=== PATIENT | male | born 1965 | race Caucasian/White ===

== ENCOUNTER → 2017-10-18 | Outpatient (CLI) | payer OTHER ==
[~2017-10-18] MED LIST: ASPIRIN81 M1 PO; CIPRO500 MG PO; FISH OIL CONC1000 M2 PO; FISH OIL500 M1 PO; HYCODAN/HYDROMET5 ML PO; LISINOPRIL10 M1 PO; METFORMIN HCL1000 M1 PO; NORVASC5 MG PO; OMEPRAZOLE40 MG PO; PRAVACHOL40 MG PO; PROPRANOLOL; PROPRANOLOL ER80 MG PO; RANITIDINE HYD300 MG PO; VIBRAMYCIN100 MG PO; VITAMIN B125000 MCG SL; [UNRECOGNIZED DRUG - OTHER] NAS
[2017-10-18 07:44] LABS: CREATININE 0.93 mg/dL (0.70-1.30)
[2017-10-18 09:12] LABS: BILIRUBIN NEGATIVE (NEGATIVE); BLOOD TRACE-INTACT (NEGATIVE); CLARITY SL CLOUDY (CLEAR); COLOR YELLOW (YELLOW); GLUCOSE NEGATIVE (NEGATIVE); KETONE NEGATIVE (NEGATIVE); LEUKO ESTERASE NEGATIVE (NEGATIVE); NITRITE NEGATIVE (NEGATIVE); PH 5.5 (5.0-9.0); UROBILINOGEN 0.2 E.U./dl (0.2-1.0)
[2017-10-18 10:06] LABS: BACTERIA TRACE; MUCOUS 2+
== END | disposition home or self-care (01) ==
LOC: LAB 07:10 → CT 08:00
PROVIDERS: Radiology Diagnostic Radiology; Urology
DX: K76.0 Fatty (change of) liver, not elsewhere classified (principal); K80.20 Calculus of gallbladder without cholecystitis without obstruction

== ENCOUNTER → 2018-01-28 | Outpatient (CLI) | payer OTHER ==
[2018-01-28 09:30] LABS: ALBUMIN 3.9 gm/dl (3.1-4.5); ALKALINE PHOSPHATASE 43 U/L (45-117); BILIRUBIN, DIRECT < 0.1 mg/dL (0.0-0.2); BUN 23 mg/dl (7-24); CHLORIDE 105 mmol/L (98-107); CHOLESTEROL 155 mg/dL (<200); CPK 95 U/L (39-308); CREATININE 0.94 mg/dL (0.70-1.30); GAMMA GLUTAMYL TRANSPEPTIDASE 15 U/L (15-85); HDL CHOLESTEROL 34 mg/dl (40-60); LDL CHOLESTEROL 91 mg/dL (9-159); POTASSIUM 4.3 mmol/L (3.5-5.1); SGOT/AST 13 IU/L (3-35); SGPT/ALT 23 U/L (12-78); SODIUM 139 mmol/L (136-145); TOTAL PROTEIN 8.1 gm/dL (6.4-8.2); TRIGLYCERIDES 150 mg/dl (<150); VLDL CHOLESTEROL 30 mg/dL (6-40)
== END | disposition home or self-care (01) ==
LOC: LAB 08:32
PROVIDERS: Family Medicine
DX: E78.5 Hyperlipidemia, unspecified (principal); R53.83 Other fatigue; R79.89 Other specified abnormal findings of blood chemistry

== ENCOUNTER → 2020-07-29 | Outpatient (CLI) | payer OTHER ==
[2020-07-29 10:46] LABS: BILIRUBIN Negative (Negative); BLOOD Negative (Negative); CLARITY Clear (Clear); COLOR Yellow (Yellow); GLUCOSE Negative (Negative); KETONE Negative (Negative); LEUKO ESTERASE Negative (Negative); NITRITE Negative (Negative); UROBILINOGEN 0.2 E.U./dl (0.0-1.0)
[2020-07-29 10:53] LABS: BASO # 0.1 10*3/uL (0.0-0.1); BASO % 0.7 % (0.0-1.0); EOS # 0.2 10*3/uL (0.0-0.4); HEMATOCRIT 40.2 % (42.0-52.0); LYMPH # 3.8 10*3/uL (1.3-4.4); LYMPH % 44.7 % (27.0-41.0); MEAN CELL VOLUME 86.8 fl (80.0-94.0); MEAN CORPUSCULAR HGB 28.1 pg (27.0-31.0); MEAN CORPUSCULAR HGB CONC 32.3 g/dl (33.0-37.0); MEAN PLATELET VOLUME 9.7 fl (9.6-12.3); MONO # 0.8 10*3/uL (0.1-1.0); MONO % 8.8 % (3.0-9.0); NEUT # 3.7 10*3/uL (2.3-7.9); NEUT % 42.9 % (47.0-73.0); PLATELET COUNT AUTOMATED 332 10*3/uL (130-400); RED BLOOD COUNT 4.63 10*6/uL (4.50-5.90); RED CELL DISTRI WIDTH 12.3 % (0-14.5); RETICULOCYTE % 1.48 % (0.50-2.50); WHITE BLOOD COUNT 8.6 10*3/uL (4.8-10.8)
[2020-07-29 11:18] LABS: ALBUMIN 3.6 gm/dl (3.1-4.5); BUN 19 mg/dl (7-24); CHLORIDE 103 mmol/L (98-107); CHOLESTEROL 188 mg/dL (<200); GAMMA GLUTAMYL TRANSPEPTIDASE 22 U/L (15-85); POTASSIUM 4.3 mmol/L (3.5-5.1); SGPT/ALT 23 U/L (12-78); SODIUM 135 mmol/L (136-145); TRIGLYCERIDES 220 mg/dl (<150); VLDL CHOLESTEROL 44 mg/dL (6-40)
[2020-07-29 11:27] LABS: ALKALINE PHOSPHATASE 53 U/L (45-117); CPK 71 U/L (39-308); CREATININE 0.82 mg/dL (0.70-1.30); HDL CHOLESTEROL 40 mg/dl (40-60); IRON 72 ug/dL (65-175); LDL CHOLESTEROL 104 mg/dL (9-159); SGOT/AST 12 IU/L (3-35); THYROID STIM HORMONE (HS) 0.871 uIU/ml (0.358-4.75); TOTAL IRON BINDING CAPACITY 409 ug/dl (250-450); TOTAL PROTEIN 7.9 gm/dL (6.4-8.2)
[2020-07-29 11:31] LABS: EPITHELIAL CELLS 0-2; MUCOUS 2+
== END | disposition home or self-care (01) ==
LOC: LAB 10:29
PROVIDERS: ATTEND Family Medicine
DX: Z00.01 Encounter for general adult medical examination with abnormal findings (principal); R79.89 Other specified abnormal findings of blood chemistry; R53.83 Other fatigue; Z13.6 Encounter for screening for cardiovascular disorders; Z13.9 Encounter for screening, unspecified

== ENCOUNTER → 2022-07-19 | Outpatient (CLI) | payer OTHER ==
[2022-07-19 10:35] LABS: BASO # 0.1 10*3/uL (0.0-0.1); EOS # 0.1 10*3/uL (0.0-0.4); EOS % 1.7 % (1.0-4.0); LYMPH # 3.4 10*3/uL (1.3-4.4); LYMPH % 44.3 % (27.0-41.0); MEAN CELL VOLUME 85.4 fl (80.0-94.0); MEAN CORPUSCULAR HGB 29.1 pg (27.0-31.0); MEAN CORPUSCULAR HGB CONC 34.1 g/dl (33.0-37.0); MEAN PLATELET VOLUME 9.6 fl (9.6-12.3); MONO # 0.6 10*3/uL (0.1-1.0); MONO % 7.5 % (3.0-9.0); NEUT # 3.5 10*3/uL (2.3-7.9); NEUT % 44.9 % (47.0-73.0); PLATELET COUNT AUTOMATED 356 10*3/uL (130-400); RED BLOOD COUNT 5.15 10*6/uL (4.50-5.90); RED CELL DISTRI WIDTH 12.1 % (0-14.5); RETICULOCYTE % 1.44 % (0.50-2.50); WHITE BLOOD COUNT 7.7 10*3/uL (4.8-10.8)
[2022-07-19 10:59] LABS: ALKALINE PHOSPHATASE 57 U/L (46-116); BUN 20 mg/dl (9-23); CHLORIDE 99 mmol/L (98-107); CHOLESTEROL 195 mg/dL (<200); GAMMA GLUTAMYL TRANSPEPTIDASE 23 U/L (0-73); LDL CHOLESTEROL 105 mg/dL (9-159); POTASSIUM 4.5 mmol/L (3.4-5.1); SGPT/ALT 22 U/L (10-49); THYROID STIM HORMONE (HS) 0.739 uIU/ml (0.550-4.780); TOTAL PROTEIN 8.4 gm/dL (6.0-8.0); TRIGLYCERIDES 266 mg/dl (<150)
[2022-07-19 11:27] LABS: BILIRUBIN Negative (Negative); BLOOD Negative (Negative); CLARITY Clear (Clear); COLOR Yellow (Yellow); GLUCOSE 1+ (Negative); KETONE Trace (Negative); LEUKO ESTERASE Negative (Negative); NITRITE Negative (Negative); PH 5.5 (4.5-8.0); SPECIFIC GRAVITY >= 1.030 (1.001-1.030)
[2022-07-19 12:54] LABS: VITAMIN D, 25-HYDROXY 33.8 ng/mL (30-100)
[2022-07-19 13:36] LABS: BACTERIA 1+; MUCOUS 1+
== END | disposition home or self-care (01) ==
LOC: LAB 10:13
PROVIDERS: ATTEND Family Medicine
DX: E78.5 Hyperlipidemia, unspecified (principal); E55.9 Vitamin D deficiency, unspecified; R79.89 Other specified abnormal findings of blood chemistry; R53.83 Other fatigue

== ENCOUNTER → 2022-10-27 | Outpatient (CLI) | payer OTHER | END | disposition home or self-care (01) | LOC: RAD 10:43 | PROVIDERS: ATTEND Family Medicine | DX: R06.02 Shortness of breath (principal); F17.200 Nicotine dependence, unspecified, uncomplicated ==

== ENCOUNTER → 2023-08-15 | Outpatient (CLI) | payer OTHER ==
[2023-08-15 14:26] LABS: BILIRUBIN Negative (Negative); BLOOD Negative (Negative); CLARITY Clear (Clear); COLOR Yellow (Yellow); GLUCOSE 3+ (Negative); KETONE Trace (Negative); LEUKO ESTERASE Negative (Negative); NITRITE Negative (Negative); PH 5.5 (4.5-8.0); SPECIFIC GRAVITY >= 1.030 (1.001-1.030); UROBILINOGEN 0.2 E.U./dl (0.0-1.0)
[2023-08-15 14:27] LABS: BASO # 0.1 10*3/uL (0.0-0.1); BASO % 0.8 % (0.0-1.0); EOS # 0.2 10*3/uL (0.0-0.4); EOS % 1.8 % (1.0-4.0); HEMATOCRIT 42.8 % (42.0-52.0); LYMPH # 3.4 10*3/uL (1.3-4.4); LYMPH % 41.6 % (27.0-41.0); MEAN CELL VOLUME 86.6 fl (80.0-94.0); MEAN CORPUSCULAR HGB 28.7 pg (27.0-31.0); MEAN CORPUSCULAR HGB CONC 33.2 g/dl (33.0-37.0); MEAN PLATELET VOLUME 10.1 fl (9.6-12.3); MONO # 0.6 10*3/uL (0.1-1.0); MONO % 6.8 % (3.0-9.0); PLATELET COUNT AUTOMATED 363 10*3/uL (130-400); RED BLOOD COUNT 4.94 10*6/uL (4.50-5.90); RETICULOCYTE % 1.63 % (0.50-2.50); WHITE BLOOD COUNT 8.2 10*3/uL (4.8-10.8)
[2023-08-15 14:37] LABS: WBC 0-2 wbc/hpf (0-5)
[2023-08-15 15:07] LABS: ALKALINE PHOSPHATASE 69 U/L (46-116); BUN 19 mg/dl (9-23); CHLORIDE 100 mmol/L (98-107); CHOLESTEROL 172 mg/dL (<200); GAMMA GLUTAMYL TRANSPEPTIDASE 19 U/L (0-73); LDL CHOLESTEROL 68 mg/dL (9-159); SGPT/ALT 18 U/L (5-49); T3 UPTAKE 30.6 % (22.4-36.7); THYROXINE (T4) TOTAL 5.9 ug/dl (4.5-10.9); TRIGLYCERIDES 380 mg/dl (<150); VITAMIN D, 25-HYDROXY 26.4 ng/mL (30-100)
== END ==
LOC: LAB 14:00
PROVIDERS: Family Medicine; ATTEND Physician Assistant
DX: E78.5 Hyperlipidemia, unspecified (principal); E55.9 Vitamin D deficiency, unspecified; R35.0 Frequency of micturition; R79.89 Other specified abnormal findings of blood chemistry; R53.83 Other fatigue; R74.8 Abnormal levels of other serum enzymes